=== PATIENT | female | born 1990 | race Caucasian/White ===

== ENCOUNTER 2017-05-16 10:52 | Emergency (ER) | payer OTHER ==
[~2017-05-16] VITALS: Ht 167.6 cm; Wt 122.5 kg
[2017-05-16 10:54] VITALS: Ht 167.6 cm; Wt 122.5 kg
[2017-05-16] MEDS ORDERED: ONDANSETRON 4 MG INJ IV STA (11:21)
[2017-05-16] MEDS ORDERED: SOD CHLORIDE 0.9% 1,000 ML IV STA (11:21)
[2017-05-16] MEDS ORDERED: morphine 4 MG/ML VIAL IV STA (11:21)
--- NOTE | 2017-05-16 11:26 | ERD ---
ER Documentation Chief Complaint Date/Time DATE: 05/16/17 TIME: 11:23 Chief Complaint RIGHT FLANK PAIN AND DYSURIA X 1 WEEK HPI Is a 26-year-old female presents the emergency department today complaining of right-sided back pain, dysuria for a week and right-sided abdominal pain. States she think she has some blood in her urine as well. States she is taking Aleve 2 days ago. Denies any fevers or chills. ROS All systems reviewed and are negative except as per history of present illness. Medications Home Meds Active Scripts Naproxen* (Naprosyn*) 500 Mg Tablet, 500 MG PO BID Y for PAIN AND/OR INFLAMMATION, #30 TAB Prov:FLORIN CERVANTES PA-C 05/16/17 Hydrocodone/Acetaminophen ([place] 5-325 Tablet) 1 Each Tablet, 1 TAB PO Q6H Y for PAIN, #12 TAB Prov:FLORIN CERVANTES PA-C 05/16/17 Cephalexin* (Keflex*) 500 Mg Capsule, 500 MG PO QID for 7 Days, CAP Prov:FLORIN CERVANTES PA-C 05/16/17 Allergies Allergies: Coded Allergies: No Known Allergies (Verified Allergy, Mild, 05/16/17) PMhx/Soc History of Surgery: No Hx Miscellaneous Medical Probl: No (NO MEDICAL PROBLEMS) Hx Alcohol Use: No Hx Substance Use: No Hx Tobacco Use: No Physical Exam Vitals Vital Signs Date Time Temp Pulse Resp B/P Pulse Ox O2 Delivery O2 Flow Rate FiO2 05/16/17 10:54 98.0 100 18 118/69 99 Physical Exam Const: Obese, no acute Head: Atraumatic Eyes: Normal Conjunctiva ENT: Normal External Ears, Nose and Mouth. Neck: Full range of motion..~ No meningismus. Resp: Clear to auscultation bilaterally Cardio: Regular rate and rhythm, no murmurs Abd: Soft, right-sided abdominal pain non distended. Normal bowel sounds Skin: No petechiae or rashes Back: No midline tenderness. Right-sided flank pain. Ext: No cyanosis, or edema Neur: Awake and alert Psych: Normal Mood and Affect Result Diagram: 05/16/17 1140 05/16/17 1140 Results 24 hrs Laboratory Tests Test 05/16/17 11:35 05/16/17 11:40 Urine Color YELLOW Urine Clarity SLIGHTLY CLOUDY Urine pH 7.0 Urine Specific [place] 1.012 Urine Ketones NEGATIVEmg/dL Urine Nitrite NEGATIVEmg/dL Urine Bilirubin NEGATIVEmg/dL Urine Urobilinogen NEGATIVEmg/dL Urine Leukocyte Esterase 3+Linda/ul Urine Microscopic RBC 2/HPF Urine Microscopic WBC 43/HPF Urine Squamous Epithelial Cells FEW/HPF Urine Bacteria FEW/HPF Urine Hemoglobin NEGATIVEmg/dL Urine Glucose NEGATIVEmg/dL Urine Total Protein NEGATIVEmg/dl White Blood Count 11.810^3/ul Red Blood Count 5.0410^6/ul Hemoglobin 13.0g/dl Hematocrit 39.5% Mean Corpuscular Volume 78.4fl Mean Corpuscular Hemoglobin 25.8pg Mean Corpuscular Hemoglobin Concent 32.9g/dl Red Cell Distribution Width 13.6% Platelet Count 56988^3/UL Mean Platelet Volume 10.5fl Neutrophils % 75.9% Lymphocytes % 19.0% Monocytes % 2.5% Eosinophils % 2.0% Basophils % 0.3% Nucleated Red Blood Cells % 0.0/100WBC Neutrophils # 9.010^3/ul Lymphocytes # 2.210^3/ul Monocytes # 0.310^3/ul Eosinophils # 0.210^3/ul Basophils # 0.010^3/ul Nucleated Red Blood Cells # 0.010^3/ul Sodium Level 142mmol/L Potassium Level 4.5mmol/L Chloride Level 102mmol/L Carbon Dioxide Level 28mmol/L Anion Gap 17 Blood Urea Nitrogen 13mg/dl Creatinine 0.73mg/dl Glucose Level 106mg/dl Calcium Level 8.9mg/dl Total Bilirubin 0.4mg/dl Direct Bilirubin 0.00mg/dl Indirect Bilirubin 0.4mg/dl Aspartate Amino Transf (AST/SGOT) 21IU/L Alanine Aminotransferase (ALT/SGPT) 30IU/L Alkaline Phosphatase 74IU/L Total Protein 7.7g/dl Albumin 4.1g/dl Globulin 3.60g/dl Albumin/Globulin Ratio 1.13 Lipase 27U/L Current Medications Medications (Trade) Dose Ordered Sig/Tracy Route PRN Reason Start Time Stop Time Status Last Admin Dose Admin Sodium Chloride (NS) 1,000 ml @ 1,000 mls/hr Q1H STAT IV 05/16/17 11:21 05/16/17 12:20 DC 05/16/17 11:50 Morphine Sulfate (morphine) 4 mg ONCE STAT IV 05/16/17 11:21 05/16/17 11:23 DC 05/16/17 11:52 Ondansetron HCl 4 mg 4 mg ONCE STAT IV 05/16/17 11:21 05/16/17 11:23 DC 05/16/17 11:52 Ceftriaxone Sodium (Rocephin) 50 ml @ 100 mls/hr ONCE ONCE IVPB 05/16/17 13:00 05/16/17 13:29 05/16/17 13:00 DIAGNOSTIC IMAGING REPORT Patient: GREGORIA SCHULZ : 1990 Age: 26 Sex: F MR #: [id number] DOS: 05/16/17 1121 Ordering MD: FLORIN CERVANTES PA-C [facility] Room/Bed: PROCEDURE: CT Abdomen and Pelvis without contrast. CLINICAL INDICATION: Right sided flank pain for 1 week with hematuria. TECHNIQUE: CT scan of the abdomen and pelvis without contrast was performed on a multidetector high-resolution CT scanner. The patient was scanned without intravenous contrast. Coronal and sagittal reformatted images were obtained from the axial source images. Images were reviewed on a high-resolution PACS workstation. One or more of the following dose reduction techniques were used: Automated exposure control, adjustment of the mA and/or kV according to patient size, use of iterative reconstruction technique. The total exam CTDI equals 23.15 mGy and the total exam DLP equals 1494.3 mGy-cm. COMPARISON: None. FINDINGS: CT abdomen: Small focal bronchiectasis with adjacent mucus plugging is noted in the left lower lobe. Otherwise, the lung bases are clear. The heart size is normal, without pericardial thickening or effusion. The liver is enlarged measuring 22 cm in size without evidence of focal mass or intrahepatic biliary dilatation. The spleen is normal in size and homogeneous in density. The stomach is grossly unremarkable. The pancreas as visualized is normal. The gallbladder and biliary tree are unremarkable and there is no evidence for biliary dilatation. The adrenal glands are symmetric and normal. There is mild asymmetric fullness of the right renal pelvis and prominence of the right ureter . There is also suggestion of minimal peripelvic and periureteral fat stranding. No definite radiodense calculi are seen within either kidney or ureter. There is no evidence of bladder calculi. The aorta is of normal caliber. There is no retroperitoneal lymphadenopathy. The ishan hepatis region is clear. The small bowel and mesentery, as visualized , are unremarkable. CT pelvis: The small bowel loops situated within the pelvis are unremarkable. The pelvic organs are normal. The pelvic sidewalls and inguinal regions are clear. The sigmoid colon and rectum are unremarkable. The appendix is normal. No mass, lymphadenopathy, or free fluid is seen. The surrounding osseous structures are unremarkable. No osteolytic or osteoblastic lesion is detected. IMPRESSION: 1. Mild fullness of the right renal collecting system without damion hydronephrosis or evidence of obstructive radiodense calculi. The findings may represent recently passed calculus. No evidence of urolithiasis. 2. Small focal left lower lobe bronchiectasis with adjacent mucus plugging, may be related to old infectious process. 3. Hepatomegaly. RPTAT: JJ .Heron Pillai MD, MD Date Time Electronically viewed and signed by .Heron Pillai MD, MD on 05/16/2017 12:53 .A/ CC: FLORIN CERVANTES PA-C Procedures/[facility] This is a 26 year-old female presents the emergency department today complaining of right-sided back pain, dysuria and abdominal pain for the past week. Patient had right-sided abdominal pain and flank pain on physical exam. Given patient's physical exam the did obtain laboratory work as well as imaging Laboratory workup shows a mildly elevated white blood cell count. She is not anemic. Platelets are within normal limits. Electrolytes are within normal limits. Glucose within normal limits. Liver enzymes are within normal limits. Lipase is within normal limits. UA shows 3+ leukocyte esterase and 43 microscopic white blood cells. Urine test is negative. CT abdomen pelvis noncontrast shows mild fullness of the right renal collecting system without damion hydronephrosis or evidence of obstructing radiodense calculi. These findings may represent recently passed calculus. There is no evidence of urolithiasis. There is small focal left lower lobe bronchiectasis with adjacent mucous plugging may be related to old infectious process. Hepatomegaly small bowel loops in the pelvis are unremarkable. Pelvic organs are normal. Pelvic sidewalls and inguinal regions are clear. The sigmoid colon and rectum are unremarkable. Appendix is normal. There is no mass adenopathy or free fluid seen. Patient symptoms at this time most consistent with urinary tract infection and possible early pyelonephritis and abdominal pain. Patient was given Rocephin here in the emergency department. She was also given morphine, Zofran and IV fluids. Patient will be discharged home with a prescription for Keflex and short course of [place] and Naprosyn. At this time the patient is stable for discharge and outpatient management. Patient should follow up with their PCP in the next 1-2 days. They may return to the emergency department sooner for any persistent or worsening of symptoms. Patient understood and agreed with the plan. Departure Diagnosis: Primary Impression: UTI (urinary tract infection) Urinary tract infection type: site unspecified Hematuria presence: without hematuria Qualified Code: N39.0 - Urinary tract infection without hematuria, site unspecified Additional Impression: Abdominal pain Abdominal location: unspecified location Qualified Code: R10.9 - Abdominal pain, unspecified location Condition: FLORIN Campbell PA-C May 16, 2017 11:26
[2017-05-16 12:06] LABS: BASOPHILS % 0.3 % (0.0-2.0); EOSINOPHILS # 0.2 10^3/ul (0.0-0.5); HEMATOCRIT 39.5 % (37.0-47.0); LYMPHOCYTES # 2.2 10^3/ul (0.8-2.9); MEAN CORPUSCULAR HEMOGLOBIN 25.8 pg (29.0-33.0); MEAN CORPUSCULAR HGB CONC 32.9 g/dl (32.0-37.0); MEAN CORPUSCULAR VOLUME 78.4 fl (82.0-101.0); MEAN PLATELET VOLUME 10.5 fl (7.4-10.4); MONOCYTE # 0.3 10^3/ul (0.3-0.9); MONOCYTES % 2.5 % (0.0-11.0); NEUTROPHILS % 75.9 % (39.0-77.0); PLATELET COUNT 300 10^3/UL (140-415); RED BLOOD COUNT 5.04 10^6/ul (4.20-5.40); RED CELL DISTRIBUTION WIDTH 13.6 % (11.5-14.5); WHITE BLOOD COUNT 11.8 10^3/ul (4.8-10.8)
[2017-05-16 12:17] LABS: ADD UMIC YES; UR ASCORBIC ACID NEGATIVE (NEGATIVE); UR BACTERIA FEW /HPF (NONE SEEN); UR BILIRUBIN (Dip) NEGATIVE (NEGATIVE); UR BLOOD (Dip) NEGATIVE (NEGATIVE); UR CLARITY SLIGHTLY CLOUDY (CLEAR); UR COLOR YELLOW (YELLOW); UR GLUCOSE (Dip) NEGATIVE (NEGATIVE); UR KETONES (Dip) NEGATIVE (NEGATIVE); UR LEUKOCYTE ESTERASE (Dip) 3+ Leu/ul (NEGATIVE); UR NITRITE (Dip) NEGATIVE (NEGATIVE); UR RBC 2 /HPF (0-5); UR SPECIFIC GRAVITY (Dip) 1.012 (1.003-1.030); UR SQUAMOUS EPITHELIAL CELL FEW /HPF (FEW); UR TOTAL PROTEIN (Dip) NEGATIVE (NEGATIVE); UR UROBILINOGEN (Dip) NEGATIVE (NEGATIVE); UR WBC CLUMPS MANY /HPF (NONE SEEN)
[2017-05-16 12:25] LABS: ALBUMIN 4.1 g/dl (3.3-4.9); ALBUMIN/GLOBULIN RATIO 1.13; BILIRUBIN,INDIRECT 0.4 mg/dl (0-1.1); BILIRUBIN,TOTAL 0.4 mg/dl (0.2-1.3); CALCIUM 8.9 mg/dl (8.4-10.2); CREATININE 0.73 mg/dl (0.44-1.00); POTASSIUM 4.5 mmol/L (3.5-5.1); TOTAL PROTEIN 7.7 g/dl (6.1-8.1)
--- NOTE | 2017-05-16 12:53 | RADRPT ---
PROCEDURE: CT Abdomen and Pelvis without contrast. CLINICAL INDICATION: Right sided flank pain for 1 week with hematuria. TECHNIQUE: CT scan of the abdomen and pelvis without contrast was performed on a multidetector hig h-resolution CT scanner. The patient was scanned without intravenous contrast. Coronal and sagittal reformatted images were obtained from the axial source images. Images were reviewed on a high-resol [employer] PACS workstation. One or more of the following dose reduction techniques were used: Automated exposure control, adjustment of the mA and/or kV according to patient size, use of iterative recon struction technique. The total exam CTDI equals 23.15 mGy and the total exam DLP equals 1494.3 mGy- cm. COMPARISON: None. FINDINGS: CT abdomen: Small focal bronchiectasis with adjacent mucus plugging is noted in the left lower lobe. Otherwise, the lung bases are clear. The heart size is normal, without pericardial thickening or effusion. The liver is enlarged measuring 22 cm in size without evidence of focal mass or intrahepatic biliary dilatation. The spleen is normal in size and homogeneous in density. The stomach is grossly unrem arkable. The pancreas as visualized is normal. The gallbladder and biliary tree are unremarkable a nd there is no evidence for biliary dilatation. The adrenal glands are symmetric and normal. There is mild asymmetric fullness of the right renal pelvis and prominence of the right ureter . There i s also suggestion of minimal peripelvic and periureteral fat stranding. No definite radiodense calc alba are seen within either kidney or ureter. There is no evidence of bladder calculi. The aorta is of normal caliber. There is no retroperitoneal lymphadenopathy. The ishan hepatis reg ion is clear. The small bowel and mesentery, as visualized, are unremarkable. CT pelvis: The small bowel loops situated within the pelvis are unremarkable. The pelvic organs are normal. T he pelvic sidewalls and inguinal regions are clear. The sigmoid colon and rectum are unremarkable. The appendix is normal. No mass, lymphadenopathy, or free fluid is seen. The surrounding osseous structures are unremarkable. No osteolytic or osteoblastic lesion is detec preet. IMPRESSION: 1. Mild fullness of the right renal collecting system without damion hydronephrosis or evidence of o bstructive radiodense calculi. The findings may represent recently passed calculus. No evidence of urolithiasis. 2. Small focal left lower lobe bronchiectasis with adjacent mucus plugging, may be related to old i nfectious process. 3. Hepatomegaly. RPTAT: JJ .Heron Pillai MD, Date Time Electronically viewed and signed by .Heron Pillai MD, on 05/16/2017 12:53 .A/
[2017-05-16] MEDS ORDERED: CEFTRIAXONE 1 GM/50 ML (PMX) 50 ML IVPB ONE (13:00)
[2017-05-16] MEDS ORDERED: CEPH-443 PO (13:09)
[2017-05-16] MEDS ORDERED: NAPR-260 PO (13:10)
[2017-05-16] MEDS ORDERED: HYDR-906 PO (13:10)
[2017-05-16 14:23] VITALS: BP 122/58; PULSE 68; RESP 18; TEMP 97.3
[2017-05-16] MEDS ORDERED: HYDROCODONE/APAP (5/325) TAB PO ONE (14:30)
== END 2017-05-16 14:24 | disposition home or self-care (01) ==
LOC: FTE 10:52
DX: N39.0 Urinary tract infection, site not specified (principal)
CPT/HCPCS: 36415; 74176; 80053; 81001; 83690; 85025; 96374; 96375; J0696; J2270; J2405; J7030; Z7502; Z7610

== ENCOUNTER 2017-06-13 18:38 | Emergency (ER) | payer OTHER ==
[~2017-06-13] VITALS: Ht 167.6 cm; Wt 125.0 kg
[~2017-06-13 18:38] MED LIST: CEPH-443 PO; HYDR-906 PO; NAPR-260 PO
[2017-06-13 18:41] VITALS: Ht 167.6 cm; Wt 125.0 kg
--- NOTE | 2017-06-13 19:08 | ERD ---
ER Documentation Chief Complaint Date/Time DATE: 06/13/17 TIME: 19:06 Chief Complaint increased left thumb pain since yesterday. denies trauma HPI This patient is a 26-year-old female presenting to the emergency department with complaints of left thumb pain associated with swelling which began 2 days ago. Symptoms are worsening. Alleviating factors include rest. Exacerbating factors include movement. She denies trauma or other symptoms at this time. ROS All systems reviewed and are negative except as per history of present illness. Medications Home Meds Active Scripts Naproxen* (Naprosyn*) 500 Mg Tablet, 500 MG PO BID Y for PAIN AND/OR INFLAMMATION, #30 TAB Prov:FLORIN CERVANTES PA-C 05/16/17 Hydrocodone/Acetaminophen ([place] 5-325 Tablet) 1 Each Tablet, 1 TAB PO Q6H Y for PAIN, #12 TAB Prov:FLORIN CERVANTES PA-C 05/16/17 Cephalexin* (Keflex*) 500 Mg Capsule, 500 MG PO QID for 7 Days, CAP Prov:FLORIN CERVANTES PA-C 05/16/17 Allergies Allergies: Coded Allergies: No Known Allergies (Verified Allergy, Mild, 06/13/17) PMhx/Soc Medical and Surgical Hx: pt denies Medical Hx, pt denies Surgical Hx History of Surgery: No Hx Miscellaneous Medical Probl: No (NO MEDICAL PROBLEMS) Hx Alcohol Use: No Hx Substance Use: No Hx Tobacco Use: No Smoking Status: Never smoker Physical Exam Vitals Vital Signs Date Time Temp Pulse Resp B/P Pulse Ox O2 Delivery O2 Flow Rate FiO2 06/13/17 18:41 98.6 74 18 127/58 99 Physical Exam Const: Nontoxic, well-appearing female in no acute distress. Head: Atraumatic Eyes: Normal Conjunctiva ENT: Normal External Ears, Nose and Mouth. Neck: Full range of motion..~ No meningismus. Resp: No signs of respiratory distress. Skin: No petechiae or rashes Back: No midline or flank tenderness Ext: No cyanosis, or edema. There is some mild edema noted about the MCP joint of the left thumb. 2+ radial pulses noted. There is no obvious deformity. There is no ecchymosis. Slightly limited range of motion of the left thumb secondary to pain. Neur: Awake and alert Psych: Normal Mood and Affect Procedures/MDM 26-year-old female presented to the emergency department with complaints of left thumb pain for the past 2 days. Exam shows no obvious deformity but there is some mild tenderness palpation of the MCP joint of the left thumb. I have low suspicion for cellulitis, septic joint, fracture, or other emergent conditions. I had planned to order x-ray imaging of the patient's left hand, but the patient declined it stating she did not want to wait for this. She was advised to return immediately for any new or worsening symptoms. She is to have close follow-up with her primary care physician. She is stable for outpatient management with a prescription for ibuprofen. Departure Diagnosis: Primary Impression: Pain of finger Laterality: left Qualified Code: M79.645 - Pain of finger of left hand Condition: Fair Patient Instructions: Finger Contusion Referrals: [facility] Additional Instructions: Follow up with your PCP within the next 1-3 days for a repeat evaluation. If you require a referral to a specialist, your Primary Care Provider may be able to provide this for you. In most patient cases, a referral is not required. If you have further questions regarding this matter, please ask your Primary Care Provider. Return the the emergency department immediately if symptoms worsen or change. If you have any questions regarding medications, ask your pharmacist or us before you leave. If any adverse reactions, occur while taking your medications, discontinue the treatment and return to the emergency department immediately. If any new or worsening symptoms, uncontrolled fevers, or other unexplained symptoms occur, return to the emergency department immediately. Take your medications as directed, and complete the entire course of treatment. ERIKA CALVILLO PA-C Jun 13, 2017 19:08
[2017-06-13] MEDS ORDERED: IBUP-1542 PO (19:09)
== END 2017-06-13 19:17 | disposition home or self-care (01) ==
LOC: FTE 18:38
DX: M79.645 Pain in left finger(s) (principal)
CPT/HCPCS: 99283